=== PATIENT | male | born 1970 | race Caucasian/White ===

== ENCOUNTER 2019-11-03 14:14 | Emergency (ER) | payer MEDICARE, MEDICAID ==
[~2019-11-03] VITALS: Ht 188 cm; Wt 122.7 kg
[2019-11-03] MEDS ORDERED: ACETAMINOPHEN 325 MG TABLET PO ONE (17:00)
[2019-11-03 19:02] VITALS: BP 133/89
== END 2019-11-03 20:45 | disposition home or self-care (01) ==
LOC: EMS 14:16
DX: M25.512 Pain in left shoulder (principal); F20.9 Schizophrenia, unspecified; I10 Essential (primary) hypertension; F17.210 Nicotine dependence, cigarettes, uncomplicated